=== PATIENT | male | born 1965 | race African-American/Black ===

== ENCOUNTER 2018-10-19 06:40 | Observation (INO) | payer BC ==
[~2018-10-19] VITALS: Ht 170.2 cm; Wt 163.0 kg
[2018-10-19 07:11] LABS: BASO # 0.1 (0.0-0.2); BASO % 1.3 % (0.0-2.0); EOS # 0.2 (0.0-0.7); EOS % 4.1 % (0-4.0); GRAN # 2.4 (1.4-6.5); GRAN % 43.6 % (42.2-75.2); HEMOGLOBIN 16.7 g/dl (13.5-18.0); LYMPH # 2.3 (1.2-3.4); LYMPH % 41.7 % (20.0-51.0); MEAN CELL VOLUME 88 fl (80.0-100.0); MEAN CORPUSCULAR HEMOGLOBIN 29 pg (27.0-31.0); MEAN CORPUSCULAR HGB CONC 33 g/dl (33.0-37.0); MEAN PLATELET VOLUME 9.8 fl (7.4-10.4); MONO # 0.5 (0.1-0.6); MONO % 8.9 % (1.7-9.3); PLATELET COUNT 233 K/mm3 (130-400); REDCELL DISTRIBUTION WIDTH-CV 15.4 % (11.5-14.5)
[2018-10-19] MEDS ORDERED: PRINZIDE 12.5 M1 TAB PO (07:24)
[2018-10-19] MEDS ORDERED: TOPROL XL100 MG PO (07:24)
[2018-10-19 07:25] LABS: ALANINE AMINOTRANSFERASE 29 U/L (21-72); ALBUMIN 4.1 gm/dL (3.5-5.0); ALKALINE PHOSPHATASE 73 U/L (50-136); ANION GAP 6 mmol/L (7-16); AST,SGOT 31 U/L (15-37); BILIRUBIN,TOTAL 1.6 mg/dL (0.0-1.0); BLOOD UREA NITROGEN 14 mg/dL (9-20); CALCIUM 9.7 mg/dL (8.4-10.2); CARBON DIOXIDE 31 mmol/L (22-30); CHLORIDE 103 mmol/L (98-107); CREATININE, serum 1.05 mg/dL (0.66-1.25); GLUCOSE 122 mg/dL (74-106); MAGNESIUM 1.7 mg/dL (1.6-2.3); SODIUM 139 mmol/L (137-145); TOTAL PROTEIN 8.1 gm/dL (6.4-8.2)
[2018-10-19] MEDS ORDERED: GLUCOPHAGE1000 MG PO (07:25)
[2018-10-19 07:26] LABS: POTASSIUM 3.8 mmol/L (3.4-5.0)
[2018-10-19 07:38] LABS: TROPONIN-I < 0.012 ng/mL (0.000-0.035)
[2018-10-19 08:00] LABS: THYROID STIMULATING HORMONE 3.86 uIU/mL (0.465-4.680)
[2018-10-19] MEDS ORDERED: ZESTORETIC 25 M1 TAB PO ×2 (08:00)
[2018-10-19] MEDS ORDERED: NORVASC 5MG5 MG/TAB PO ×2 (08:00)
--- NOTE | 2018-10-19 10:52 | NUR ---
Arrived to the room at this time. No pain or needs reported. Oriented to the room. Heart Healthy diet in place. Assisted with ordering a meal.
[2018-10-19 11:33] VITALS: BP 142/91; PULSE 65; TEMP 97.8
[2018-10-19 16:51] VITALS: BP 142/99; PULSE 89; TEMP 98.4
--- NOTE | 2018-10-19 18:21 | NUR ---
No change this afternoon. Blood pressure remains lower at 140's/90's. No pain or other cardiac change. The call light is in place.
[2018-10-19 19:26] VITALS: BP 144/81; PULSE 62; TEMP 98.3
--- NOTE | 2018-10-19 20:24 | NUR ---
Initial shift assessment done- denies pain, denies chest pain or headache B/P 140,s/80,s Up ad gemini in room- no requests
[2018-10-19 23:30] VITALS: BP 116/72; PULSE 61; TEMP 97.3
[2018-10-20 03:25] VITALS: BP 121/70; PULSE 63; TEMP 97.5
--- NOTE | 2018-10-20 06:25 | NUR ---
Quiet night- no requests this morning--states slept well. B/P during the night 116/72 , 121/70
[2018-10-20 08:27] VITALS: BP 139/103; PULSE 52; TEMP 97.6
--- NOTE | 2018-10-20 09:52 | NUR ---
PT IN RECLINER SITTING UP EATING BREAKFAST, DENIES PAIN OR DISCOMFORT. PT IS PLEASANT AND COOPERATIVE. PT HAS NO NEEDS AT THIS TIME, CALL LIGHT WITHIN REACH.
--- NOTE | 2018-10-20 09:58 | NUR ---
Initial visit; Patient thanked Spacecraft Systems Engineer for looking in on him and offering God's blessings.
--- NOTE | 2018-10-20 10:23 | NUR ---
PT INDEPENDENT IN ROOM. PT WILL BE DISCHARGED LATER THIS AFTERNOON AROUND 1400. PT IS AWARE OF DISCHARGE. PT HAS NO NEEDS AND REFUSES ASSISTANCE AT THIS TIME. CALL LIGHT WITHIN REACH.
[2018-10-20] MEDS ORDERED: XARELTO20 MG PO (11:01)
[2018-10-20] MEDS ORDERED: LIPITOR 40MG TA40 MG PO (11:01)
[2018-10-20] MEDS ORDERED: NORVASC 5MG5 MG/TAB PO (11:02)
[2018-10-20] MEDS ORDERED: ZESTORETIC 25 M1 TAB PO (11:03)
[2018-10-20 11:23] VITALS: BP 131/72; PULSE 74; TEMP 98.3
--- NOTE | 2018-10-20 13:44 | NUR ---
PT GIVEN DISCHARGE INSTRUCTIONS, WENT OVER MEDICATIONS AND APPOINTMENT. PT VERBALIZED UNDERSTANDING, ALSO, GIVEN EDUCATION ON HTN, STROKE, AND NEW MEDICATION. PT IS A/O X4, DENIES PAIN OR DISCOMFORT, AND IS INDEPENDENT. PT REFUSES TO GO LEAVE IN W/C. PT WANTS TO AMBULATE TO PRIVATE VEHICLE.
--- NOTE | 2018-10-20 14:20 | NUR ---
PT'S IV REMOVED AND CATHETER INTACT, APPLIED PRESSURE TILL BLEEDING STOPPED, AND PROTECTIVE DRSG APPLIED. TELEMETRY REMOVED FROM PT WELL. PT LEFT FACILITY WITH PERSONAL BELONGINGS AT 1415. AMBULATED TO PRIVATE VEHICLE ACCOMPANIED BY FAMILY MEMBER.
== END 2018-10-20 14:15 | disposition home or self-care (01) ==
LOC: COL.ER 06:40 → SURG 09:28 → MEDICAL 15:35
PROVIDERS: Emergency Medicine; ADMIT Internal Medicine Interventional Cardiology
DX: I16.0 Hypertensive urgency (principal); I48.92 Unspecified atrial flutter; I48.91 Unspecified atrial fibrillation; G47.33 Obstructive sleep apnea (adult) (pediatric); E11.9 Type 2 diabetes mellitus without complications; Z79.899 Other long term (current) drug therapy; K74.60 Unspecified cirrhosis of liver; E78.5 Hyperlipidemia, unspecified; R60.0 Localized edema; Z79.84 Long term (current) use of oral hypoglycemic drugs; R06.02 Shortness of breath; Z99.81 Dependence on supplemental oxygen; Z83.3 Family history of diabetes mellitus

== ENCOUNTER 2018-11-12 11:36 | Day surgery (SDC) | payer BC ==
[~2018-11-12] VITALS: Ht 170.2 cm; Wt 168.0 kg
[~2018-11-12 11:36] MED LIST: GLUCOPHAGE1000 MG PO; LIPITOR 40MG TA40 MG PO; NORVASC 5MG5 MG/TAB PO; PRINZIDE 12.5 M1 TAB PO; TOPROL XL100 MG PO; XARELTO20 MG PO; ZESTORETIC 25 M1 TAB PO
[2018-11-12 12:19] VITALS: BP 140/96; PULSE 81
[2018-11-12 12:31] LABS: INR 1.1 (0.8-3.0)
[2018-11-12 12:34] LABS: POTASSIUM 3.9 mmol/L (3.4-5.0)
[2018-11-12 13:08] LABS: THYROID STIMULATING HORMONE 2.54 uIU/mL (0.465-4.680)
[2018-11-12 14:55] VITALS: BP 127/88; PULSE 80
--- NOTE | 2018-11-12 14:55 | NUR ---
PT VSS POST CARDIOVERSION C PATRICIO. RESTING COMFORTABLY IN BED AT THIS TIME.
[2018-11-12 15:10] VITALS: BP 139/95; PULSE 91
[2018-11-12 15:40] VITALS: BP 144/100; PULSE 91
--- NOTE | 2018-11-12 16:50 | NUR ---
PT VSS STABLE POST CARDIOVERSION WITH POST EKG RETRIEVED. PAIN DENIED AT THIS TIME. 20G REMOVED FROM RIGHT AC INTACT. DISCHARGE INSTRUCTIONS REVIEWED AND SIGNED. PT WHEELED OUT SAFELY TO PATIENT ENTRANCE WHERE [employer] SUPERINTENDENT WAS PRESENT TO PICK HIM UP.
== END 2018-11-12 16:52 | disposition home or self-care (01) ==
LOC: COL.CAR 11:36
PROVIDERS: Internal Medicine Interventional Cardiology
DX: I48.3 Typical atrial flutter (principal); I48.91 Unspecified atrial fibrillation; I34.0 Nonrheumatic mitral (valve) insufficiency; Z91.010 Allergy to peanuts; I10 Essential (primary) hypertension; G47.33 Obstructive sleep apnea (adult) (pediatric); I87.2 Venous insufficiency (chronic) (peripheral); R60.0 Localized edema; Z79.84 Long term (current) use of oral hypoglycemic drugs; Z79.01 Long term (current) use of anticoagulants; E11.9 Type 2 diabetes mellitus without complications; E78.5 Hyperlipidemia, unspecified; Z82.49 Family history of ischemic heart disease and other diseases of the circulatory system
CPT/HCPCS: J2704; J7030

== ENCOUNTER 2022-09-11 05:27 | Emergency (ER) | payer BC ==
[~2022-09-11] VITALS: Ht 170.2 cm; Wt 168.2 kg
[2022-09-11 05:39] VITALS: TEMP 98.5
[2022-09-11 06:20] LABS: COLLECTION METHOD CLEAN CATCH
[2022-09-11 06:33] LABS: SQUAMOUS EPITHELIAL 0-2 /hpf (0-10); URINE BACTERIA None Seen /hpf (NONE SEEN); URINE RBC 0-2 /hpf (0-2)
[2022-09-11 06:34] LABS: PH 5.5 (5.0-8.5); URINE APPEARANCE Clear (CLEAR/HAZY); URINE BLOOD Negative (NEGATIVE); URINE COLOR Yellow (YELLOW); URINE GLUCOSE Negative (NEGATIVE); URINE KETONE Negative (NEGATIVE); URINE NITRATE Negative (NEGATIVE); URINE PROTEIN(semi-quant) Negative (NEGATIVE); URINE UROBILINOGEN 0.2 E.U/dL (0.2-1.0)
[2022-09-11 06:34] LABS: BASO % 0.8 % (0.0-2.0); EOS # 0.3 K/mm3 (0.0-0.7); EOS % 5.5 % (0.0-4.0); GRAN # 2.1 K/mm3 (1.4-6.5); GRAN % 40.5 % (42.2-75.2); HEMATOCRIT 46.1 % (42.0-52.0); HEMOGLOBIN 15.8 g/dl (13.5-18.0); LYMPH # 2.1 K/mm3 (1.2-3.4); LYMPH % 40.3 % (20.0-51.0); MEAN CELL VOLUME 87 fl (80.0-100.0); MEAN CORPUSCULAR HEMOGLOBIN 30 pg (27-31); MEAN CORPUSCULAR HGB CONC 34 g/dl (33.0-37.0); MEAN PLATELET VOLUME 9.2 fl (7.4-10.4); MONO # 0.6 K/mm3 (0.1-0.6); MONO % 12.5 % (1.7-9.3); PLATELET COUNT 263 K/mm3 (130-400); RED BLOOD COUNT 5.33 M/mm3 (4.20-5.60); REDCELL DISTRIBUTION WIDTH-CV 14.8 % (11.5-14.5)
[2022-09-11 06:53] LABS: ALBUMIN 3.6 gm/dL (3.5-5.0); BILIRUBIN,TOTAL 1.4 mg/dL (0.2-1.2); C-REACTIVE PROTEIN 0.34 mg/dL (0.00-0.50); CALCIUM 9.9 mg/dL (8.4-10.2); CREATININE, serum 0.97 mg/dL (0.72-1.25); POTASSIUM 3.8 mmol/L (3.5-4.5); TOTAL PROTEIN 7.6 gm/dL (6.2-8.1)
[2022-09-11 08:28] VITALS: BP 131/91; PULSE 77
== END 2022-09-11 08:28 | disposition home or self-care (01) ==
LOC: COL.ER 05:27
PROVIDERS: Emergency Medicine
DX: M54.50 Low back pain, unspecified (principal); R91.1 Solitary pulmonary nodule
CPT/HCPCS: J7030; Q9967